=== PATIENT | female | born 1935 | race Caucasian/White ===

== ENCOUNTER 2017-12-29 11:45 | Emergency (ER) | payer MEDICARE | END 2017-12-29 12:00 | disposition left against medical advice (07) | LOC: ER 11:45 | DX: Z53.21 Procedure and treatment not carried out due to patient leaving prior to being seen by health care provider (principal) | CPT/HCPCS: A4663 ==

== ENCOUNTER 2018-03-02 11:32 | Emergency (ER) | payer MEDICARE, BC ==
[~2018-03-02] VITALS: Ht 162.6 cm; Wt 63.5 kg
--- NOTE | 2018-03-02 11:53 | NUR ---
Dr Leonard at the bedside for MSE.
[2018-03-02 11:58] LABS: *BILIRUBIN,URIN NEGATIVE (NEGATIVE); *BLOOD, URINE 2+ (NEGATIVE); *CLARITY,URINE CLOUDY (CLEAR); *COLOR,URINE YELLOW (YELLOW); *KETONES,URINE NEGATIVE (NEGATIVE); *PROTEIN,URINE 1+ (NEGATIVE); *UROBILINOGEN,URINE 0.2 E.U./dl (NORMAL); LEUKOCYTE ESTERASE ,URINE 1+ (NEGATIVE); NITRITE, URINE NEGATIVE (NEGATIVE); UGLUCOSE NEGATIVE (NEGATIVE)
[2018-03-02] MEDS ORDERED: PHENAZOPYRIDINE HCL 100 MG TABLET ONE (11:59)
[2018-03-02] MEDS ORDERED: PHENAZOPYRIDINE HCL 100 MG TABLET PO ONE (12:00)
[2018-03-02] MEDS ORDERED: OXYCODONE HCL 5 MG TABLET PO ONE (12:15)
[2018-03-02 12:16] LABS: BACTERIA,URINE MODERATE /HPF (NONE SEEN); SQUAMOUS EPITHELIAL CELL,UR FEW /HPF (NONE SEEN); WBC,URINE 80-100 /HPF (0-3)
[2018-03-02 12:47] VITALS: BP 111/64
--- NOTE | 2018-03-02 12:48 | NUR ---
Patient discharged to home in stable conditon. Written and verbal after care instructions given. Patient verbalizes understanding of instructions.
--- NOTE | 2018-03-04 00:01 | NUR ---
discussed the use of diflucan, 1 pill per week x 2, with the box stacker, as the patient is on sotalol for dysrhythmia. Wire Splicer said very low risk and I can prescribe the medicaiton
== END 2018-03-02 12:47 | disposition home or self-care (01) ==
LOC: ER 11:32
DX: N39.0 Urinary tract infection, site not specified (principal); I10 Essential (primary) hypertension; E78.5 Hyperlipidemia, unspecified; E03.9 Hypothyroidism, unspecified
CPT/HCPCS: 87077; 87086; A4663

== ENCOUNTER 2020-05-05 14:21 | Emergency (ER) | payer BC, MEDICARE ==
[~2020-05-05] VITALS: Ht 162.6 cm; Wt 63.5 kg
--- NOTE | 2020-05-05 14:31 | NUR ---
ERMD AT BEDSIDE FOR HX AND PHYSICAL
[2020-05-05] MEDS ORDERED: NEOMY/BACITRA/POLYMYXIN B OINT UD PACKET TP ONE ×2 (14:45)
[2020-05-05] MEDS ORDERED: TDAP DIPH,PERTUSS,TET VAC/PF 0.5 ML DISP.SYRIN IM ONE ×2 (14:45→14:46)
[2020-05-05] MEDS ORDERED: LIDOCAINE HCL 1% 20 ML VIAL TP ONE (14:45)
--- NOTE | 2020-05-05 15:40 | NUR ---
Patient discharged to home in stable condition. Written and verbal after care instructions given. Patient verbalizes understanding of instructions. Stressed follow up or return to ER for worsening s/s.pt walks in steady gait.
== END 2020-05-05 15:41 | disposition home or self-care (01) ==
LOC: ER 14:21
DX: S91.201A Unspecified open wound of right great toe with damage to nail, initial encounter (principal); W22.8XXA Striking against or struck by other objects, initial encounter; Y92.89 Other specified places as the place of occurrence of the external cause
CPT/HCPCS: 11730; 73660; 90471; 90715; 99283; J3490; A4663

== ENCOUNTER 2023-05-28 12:47 | Inpatient (IN) | payer MEDICARE, BC ==
[~2023-05-28] VITALS: Ht 162.6 cm; Wt 54.4 kg
[2023-05-28 13:04] LABS: MEAN CORPUSCULAR HEMOGLOBIN 32.3 uug (24.7-32.8); MEAN CORPUSCULAR VOLUME 95.8 fL (75.5-95.3); PLATELET COUNT (AUTO) 477 K/uL (179-408)
[2023-05-28] MEDS ORDERED: LEVOTHYROXINE PO (13:09)
[2023-05-28] MEDS ORDERED: PAXIL (13:09)
[2023-05-28] MEDS ORDERED: AMLODIPINE PO (13:09)
[2023-05-28] MEDS ORDERED: BETAPACE PO (13:09)
[2023-05-28] MEDS ORDERED: POTASSIUM CL PO (13:09)
[2023-05-28] MEDS ORDERED: METHENAMINE PO (13:09)
[2023-05-28] MEDS ORDERED: ATORVASTATIN PO (13:09)
[2023-05-28 13:13] LABS: CARBON DIOXIDE 27 mmol/L (21-32); CHLORIDE 94 mmol/L (98-107); UREA NITROGEN, BLOOD 19 mg/dL (7-18)
[2023-05-28] MEDS ORDERED: ACETAMINOPHEN 325 MG TABLET PO ONE (14:30)
[2023-05-28] MEDS ORDERED: MAGNESIUM SULFATE/D5W 100 ML IV SCH (14:30)
[2023-05-28] MEDS ORDERED: ACETAMINOPHEN 325 MG TABLET ONE (14:35)
[2023-05-28] MEDS ORDERED: MAGNESIUM SULFATE/D5W 100 ML ONE (14:35)
[2023-05-28 15:19] LABS: *BILIRUBIN,URIN NEGATIVE (NEGATIVE); *BLOOD, URINE NEGATIVE (NEGATIVE); *CLARITY,URINE CLEAR (CLEAR); *COLOR,URINE YELLOW (YELLOW); *KETONES,URINE NEGATIVE (NEGATIVE); *UROBILINOGEN,URINE 0.2 E.U./dl (NORMAL); LEUKOCYTE ESTERASE ,URINE NEGATIVE (NEGATIVE); NITRITE, URINE NEGATIVE (NEGATIVE); UGLUCOSE NEGATIVE (NEGATIVE)
[2023-05-28] MEDS ORDERED: PARO20TA7 PO (15:52)
[2023-05-28 18:00] VITALS: BP 159/81; TEMP 98.1; O2SAT 97
[2023-05-28] MEDS ORDERED: AMLO2.5T2 PO (18:29)
[2023-05-28] MEDS ORDERED: ATOR40TA PO (18:30)
[2023-05-28] MEDS ORDERED: SOTA120T22 PO (18:30)
[2023-05-28] MEDS ORDERED: LEVO50TA8 PO (18:31)
[2023-05-28] MEDS ORDERED: METH1TAB69 PO (18:31)
[2023-05-28] MEDS ORDERED: POTA10CA43 PO (18:32)
[2023-05-28] MEDS ORDERED: HYDROCODONE/APAP 5-325MG TABLET PO PRN (20:30)
[2023-05-28] MEDS ORDERED: ACETAMINOPHEN 325 MG TABLET PO PRN (20:30)
[2023-05-28] MEDS ORDERED: ONDANSETRON 4 MG/2 ML VIAL IV PRN (20:30)
[2023-05-28] MEDS ORDERED: REMEDY ESSENTIAL ZINC PASTE 113 GM TP PRN (20:30)
[2023-05-28] MEDS ORDERED: MAGNESIUM HYDROXIDE 30 ML LIQUID UDC PO PRN (20:30)
[2023-05-28] MEDS ORDERED: HYDROCODONE/APAP 10-325 MG TABLET PO PRN (20:30)
[2023-05-28] MEDS ORDERED: SOTALOL HCL 80 MG TABLET PO SCH (21:00)
[2023-05-28] MEDS ORDERED: ENOXAPARIN SODIUM 40 MG/0.4 ML DISP.SYRIN SQ SCH (21:00)
[2023-05-28] MEDS ORDERED: ATORVASTATIN 40 MG TABLET PO SCH (21:00)
[2023-05-28 21:12] VITALS: BP 143/82; TEMP 98.2; O2SAT 98
[2023-05-28] MEDS: IV 1/2NS 1000 ML 1,000 ML IV PRN (21:40)
[2023-05-28] MEDS ORDERED: SOTALOL HCL 80 MG TABLET ONE (21:56)
[2023-05-29 06:57] LABS: HEMATOCRIT 25.4 % (31.2-41.9); MEAN CORPUSCULAR HEMOGLOBIN 33.5 uug (24.7-32.8); MEAN CORPUSCULAR VOLUME 95.2 fL (75.5-95.3); PLATELET COUNT (AUTO) 400 K/uL (179-408)
[2023-05-29] MEDS ORDERED: LEVOTHYROXINE SODIUM 50 MCG TABLET PO SCH (07:00)
[2023-05-29] MEDS ORDERED: PANTOPRAZOLE SODIUM 40 MG TABLET.DR PO SCH (07:00)
[2023-05-29 07:22] LABS: THYROID STIMULATING HORMONE 3.002 mIU/mL (0.358-3.740)
[2023-05-29 07:25] LABS: CARBON DIOXIDE 25 mmol/L (21-32); CHLORIDE 97 mmol/L (98-107); CREATININE 0.9 mg/dL (0.6-1.3); MAGNESIUM 1.9 mg/dL (1.8-2.4); PHOSPHOROUS 3.6 mg/dL (2.5-4.9); POTASSIUM 3.9 mmol/L (3.5-5.1); UREA NITROGEN, BLOOD 16 mg/dL (7-18)
[2023-05-29 07:57] LABS: CHOLESTEROL 136 mg/dL (<200); HDL CHOLESTEROL 54 mg/dL (40-60); TRIGLYCERIDES 75 MG/DL (30-150)
[2023-05-29 08:00] VITALS: BP 155/77; TEMP 98.1; O2SAT 98
[2023-05-29] MEDS ORDERED: AMLODIPINE 2.5 MG TABLET PO SCH (09:00)
[2023-05-29] MEDS ORDERED: POTASSIUM CHLORIDE 10 MEQ TAB.PRT.SR PO SCH (09:00)
[2023-05-29] MEDS ORDERED: SOTALOL HCL 80 MG TABLET PO SCH (09:00)
[2023-05-29] MEDS ORDERED: PAROXETINE HCL 20 MG TABLET PO SCH (09:00)
[2023-05-29 12:00] VITALS: BP 120/66; TEMP 98.2; O2SAT 95
[2023-05-29] MEDS: IV 1/2NS 1000 ML 1,000 ML IV PRN (12:15)
== END 2023-05-29 14:55 | disposition left against medical advice (07) | DRG 536 ==
LOC: ER 12:47 → MEDSURG3 16:30
DX: S72.115A Nondisplaced fracture of greater trochanter of left femur, initial encounter for closed fracture (principal); E87.1 Hypo-osmolality and hyponatremia; Z96.642 Presence of left artificial hip joint; R29.6 Repeated falls; I48.0 Paroxysmal atrial fibrillation; W01.0XXA Fall on same level from slipping, tripping and stumbling without subsequent striking against object, initial encounter; Y93.01 Activity, walking, marching and hiking; Y92.89 Other specified places as the place of occurrence of the external cause; S70.12XA Contusion of left thigh, initial encounter; N32.3 Diverticulum of bladder; I25.10 Atherosclerotic heart disease of native coronary artery without angina pectoris; I25.2 Old myocardial infarction; Z79.899 Other long term (current) drug therapy; F32.A Depression, unspecified; E03.9 Hypothyroidism, unspecified; Z79.890 Hormone replacement therapy; I10 Essential (primary) hypertension; E78.5 Hyperlipidemia, unspecified; Z87.81 Personal history of (healed) traumatic fracture; Z87.440 Personal history of urinary (tract) infections; R53.1 Weakness
CPT/HCPCS: 36415; 71045; 72192; 73502; 83735; 84100; 84443; 84484; 85025; 93005; 93307; G0378; J1650; J3475

== ENCOUNTER 2023-06-30 12:10 | Emergency (ER) | payer MEDICARE, BC ==
[~2023-06-30] VITALS: Ht 160 cm; Wt 56.7 kg
[~2023-06-30 12:10] MED LIST: AMLO2.5T2 PO; ATOR40TA PO; LEVO50TA8 PO; METH1TAB69 PO; PARO20TA7 PO; POTA10CA43 PO; SOTA120T22 PO
[2023-06-30 12:15] VITALS: O2SAT 97
== END 2023-06-30 13:52 | disposition home or self-care (01) ==
LOC: ER 12:18
DX: S72.112D Displaced fracture of greater trochanter of left femur, subsequent encounter for closed fracture with routine healing (principal); M25.562 Pain in left knee; M25.561 Pain in right knee; I10 Essential (primary) hypertension; I25.10 Atherosclerotic heart disease of native coronary artery without angina pectoris; E78.5 Hyperlipidemia, unspecified; E03.9 Hypothyroidism, unspecified; Z79.899 Other long term (current) drug therapy; X58.XXXD Exposure to other specified factors, subsequent encounter
CPT/HCPCS: 73551; 73560; A4663